=== PATIENT | female | born 1945 | race Caucasian/White ===

== ENCOUNTER 2020-06-09 12:34 | Outpatient (REF) | payer MEDICARE, MEDICAID, SELFPAY | END 2020-06-09 12:35 | disposition home or self-care (01) | LOC: HO.LAB 12:34 | PROVIDERS: Visit Provider Internal Medicine | DX: Z20.828 Contact with and (suspected) exposure to other viral communicable diseases (principal) | CPT/HCPCS: C9803; U0003 ==

== ENCOUNTER 2021-07-01 08:22 | Outpatient (REF) | payer MEDICARE, MEDICAID, SELFPAY ==
[2021-07-01 09:36] LABS: Binax Internal Control QC Valid; Binax Now Covid-19 Ag Negative (Negative)
== END 2021-07-01 08:23 | disposition home or self-care (01) ==
LOC: HO.LAB 08:22
PROVIDERS: Visit Provider Internal Medicine
DX: Z20.822 Contact with and (suspected) exposure to COVID-19 (principal)
CPT/HCPCS: C9803

== ENCOUNTER 2023-10-27 15:48 | Emergency (ER) | payer MEDICARE, MEDICAID, SELFPAY ==
--- NOTE | ~2023-10-27 | XR_ITS ---
EXAMINATION: XR CHEST CLINICAL INFORMATION: Reason for Exam dyspnea COMPARISON: CT chest 04/13/2021 TECHNIQUE: 2 views of the chest FINDINGS: Lines and tubes: None. New small left pleural effusion and streaky left basilar opacities which may reflect atelectasis. No pneumothorax. Cardiomediastinal silhouette appears slightly rotated to the left, similar to prior which may be positional secondary to scoliotic curvature. Dextroconvex curvature of the cervicothoracic spine. XR/XR chest 2V IMPRESSION: 1. New small left pleural effusion and streaky left basilar opacities which may reflect atelectasis. 2. Cardiomediastinal silhouette appears slightly rotated to the left, similar to prior which may be positional secondary to scoliotic curvature.
--- NOTE | ~2023-10-27 | CT_ITS ---
EXAMINATION: CT HEAD WITHOUT CONTRAST CLINICAL INFORMATION: Fall. Bruising over forehead COMPARISON: CT head February 04, 2020 TECHNIQUE: Contiguous axial imaging was performed from the skull base to vertex without intravenous administration of contrast. Coronal and sagittal reformatted images are performed at the CT scanner. [This CT examination was performed using dose optimization techniques as appropriate, variously including the following: *Automated exposure control *Adjustment of mA and/or kV according to patient size (this includes techniques or standardized protocols for targeted exams where dose is matched to indication/reason for exam; i.e. extremities or head) *Use of iterative reconstruction technique] DLP: 535 mGy-cm. FINDINGS: There is no evidence of acute intracranial hemorrhage or territorial infarction. No abnormal mass-effect or midline shift is seen. Grant to white matter differentiation is well preserved. No extra-axial fluid collections are identified. There is generalized global volume loss. There is moderate prominence of the ventricles and the sulci . There is moderate hypodensity of the periventricular white matter due to chronic small vessel ischemic disease. There are vascular calcifications of the internal carotid arteries bilaterally. There is no osseous abnormality. The mastoid air cells and visualized portions of the paranasal sinuses are well-aerated. CT/CT head/brain wo IV con IMPRESSION: No acute intracranial pathology.
--- NOTE | 2023-10-27 15:52 | ED_ITS ---
HPI - General Adult General Chief complaint: General Medical Stated complaint: Fluid in lungs as per primary Time Seen by Provider: 10/27/23 19:20 History of Present Illness HPI narrative: 78 years old with history of cerebral palsy, presents to the emergency room sent by her PCP after an abnormal chest x-ray. Patient fell last weekend, unclear on what date, but more than 7 days ago according to SOCIAL SCIENCE TEACHER did not seek medical advice at the time, today the SOCIAL SCIENCE TEACHER brought the patient to the PCP for evaluation since she has been complaining of chest pain. On x-ray it was seen that patient has a small pleural effusion and therefore was sent to the emergency room for evaluation. At the time of assessment patient reports no symptoms, no respiratory distress, no chest pain, no headache does notice that she has at bruise approximately 3 cm in diameter of the level of the left forehead. Denies abdominal pain nausea or vomiting This the event more than a week ago. Related Data Allergies Allergy/AdvReac Type Severity Reaction Status Date / Time No Known Allergies Allergy Verified 10/27/23 15:56 Review of Systems 2 Review of Systems: Yes all other systems are reviewed and are negative [facility] Social History Social History Advance Directives: No Advance Directives Information Provided: No Do you have a plan to hurt others: No Plan Physical Exam ED Vital Signs: Vital Signs - 24 hr 10/27/23 15:54 Temperature 98.9 F Pulse Rate 87 Respiratory Rate 20 Blood Pressure 151/85 H Pulse Oximetry 95 Oxygen Delivery Method Room Air BMI result Body Mass Index 19.0 General: Alert, Not in Distress Skin: No rash, warm. 3 cm bruise of L forehad, no laceration HEENT: Atraumatic, No Exudate or Pharyngeal Erythema Resp: Normal Breath sounds bilaterally Cardio: Regular rate and Rhythm, Normal S1, S2 Chest wall: no tenderness on palpation, no bruising ABD: Abd soft, non tender, no guarding or rebound. Normal Bowel sounds. : No cva tenderness Neuro: Alert, oriented x4, PERRL Strenght 5/5 on all extremities Sensation is preserved in both lower and upper extremities Index to nose: normal Cranial Nerves II-XII grossly intact No dysarthria, or aphasia No neglet. Visual matthews are normal bilaterally Psych: Cooperative, NO SI Course Course Course Narrative: This is a rapid medical exam performed by C. [place], COVERING MACHINE OPERATOR: Additional HPI, ROS, PE not included below will be deferred to primary provider. Patient is a 78-year-old female presenting to the ED with complaint of left sided rib pain and dyspnea. PCP ordered outpatient x-rays, SOCIAL SCIENCE TEACHER received call today and was told to bring patient to the ED for fluid in her lungs. Patient denies fevers. O2 94% on room air in triage, no increased work of breathing. Plan: CXR as prior unavailable, labs Reevaluation(s) Reevaluation #1: I personally reviewed the patient head CT that showed no intracranial bleed. Patient did well on ambulatory trial. We will provider her with spirometry. Pending formal CT report. Time: 20:08 Medical Decision Making Medical Decision Making [facility] Narrative: 78 years old presenting to the emergency room after a mechanical fall that occurred more than 7 days ago. X-ray that was done Monday showed left side small pleural effusion and some attack disease likely secondary from trauma patient however does not have any respiratory symptoms at this time, she has not febrile and does not appear to be dyspneic or tachypneic. In consideration of the fact that the patient injury occurred more than a week ago at this time I do not think patient requires hospitalization if she is able to maintain SpO2 above 92 during amb[address] trial. Plan CT head physical exam Ambulatory trial Incentive spirometer+ Admission/Observation Consideration of admission/observation: Escalation of care including admission/observation considered Lab Data [facility] Lab Attestation statement: I reviewed the patient's lab results. Hemoglobin 12.7 which makes me think patient does not have an acute blood loss. 10/27/23 16:09 10/27/23 16:09 Labs: Lab Results 10/27/23 Range/Units 16:09 WBC 7.4 (4.8-10.8) X10*3/uL RBC 4.23 (4.20-5.50) X10*6/uL Hgb 12.7 (12.0-16.0) g/dl Hct 38.5 (37.0-47.0) % MCV 91.0 (80.0-98.0) fL MCH 30.0 (27.0-33.0) pg MCHC 33.0 (31.0-35.0) g/dl RDW 13.8 (11.0-16.0) % Plt Count 211 (160-400) X10*3/uL MPV 10.0 (9.4-12.3) fL Immature Gran % (Auto) 0.5 H (0.0-0.4) % Neut % (Auto) 73.6 H (45-73) % Lymph % (Auto) 14.9 L (20-40) % Chambers % (Auto) 7.6 (2-11) % Eos % (Auto) 2.9 (0-4) % Baso % (Auto) 0.5 (0-2) % Lymph # (Auto) 1.1 L (1.2-4.9) X10*3/uL Chambers # (Auto) 0.6 (0.1-1.2) X10*3/uL Eos # (Auto) 0.2 (0.0-0.4) X10*3/uL Baso # (Auto) 0.0 (0.0-0.2) X10*3/uL Abs Immat Gran (auto) 0.04 H (0.00-0.03) X10*3/uL Absolute Neuts (auto) 5.4 (2.0-8.3) x10*3/uL Absolute Nucleated RBC 0.000 (0.0-0.012) X10*3/uL Nucleated RBC % (auto) 0.0 (0.0-0.2) /100WBC PT 11.8 (11.1-13.3) SEC INR 1.0 (0.9-1.1) Sodium 141 (135-145) mmol/L Potassium 4.3 (3.3-5.1) mmol/L Chloride 107 (96-108) mmol/L Carbon Dioxide 24 (22-29) mmol/L Anion Gap 14 (12-20) BUN 16 (9-16) mg/dL Creatinine 0.82 (0.5-1.4) mg/dL Estim Creat Clear Calc 39.4 Estimated GFR > 60 Random Glucose 109 (60-115) mg/dL Calcium 9.7 (8.4-10.2) mg/dL Total Bilirubin 0.8 (0.0-1.0) mg/dL AST 19 (5-31) U/L ALT 9 (0-31) U/L Alkaline Phosphatase 83 (39-117) U/L B-Natriuretic Peptide 63 (<100) pg/mL Total Protein 7.1 (6.5-8.0) g/dL Albumin 3.9 (3.5-5.0) g/dL Influenza Type A (PCR) NEGATIVE (Negative) Influenza Type B (PCR) NEGATIVE (Negative) RSV RNA Qual (PCR) NEGATIVE (Negative) SARS-CoV-2 RNA (RT-PCR) NEGATIVE (Negative) Independent Interpretation I performed an independent interpretation of an: EKG (I personally reviewed patient's EKG that shows normal sinus rhythm.), Plain X-Ray (I personally reviewed patient's chest x-ray shows a small side left-sided pleural effusion) and CT Scan (I personally reviewed and interpreted the patient CT head that shows no intracranial bleed.) Radiology Impression Discussion of test interpretation with radiology: I have reviewed the radiologist's reading. Discharge Plan Discharge Clinical Impression: Pleural effusion, Fall Patient Disposition: Home, Self-Care Instructions: How to Use an Incentive Spirometer (ED) Additional Instructions: Return to the emergency room if you experience chest pain, shortness of breath, chills fever or cough. For pain at home you can use Tylenol 1000 mg every 8 hours. Follow-up with your primary care physician within the next 3-5 days. Print Language: Barbadian
[2023-10-27 15:54] VITALS: BP 151/85; PULSE 87; RESP 20; TEMP 37.2; O2SAT 95; BMI 19.0
--- NOTE | 2023-10-27 15:57 | ECG_ITS ---
Test Reason : dyspnea Blood Pressure : / mmHG Vent. Rate : 080 BPM Atrial Rate : 080 BPM P-R Int : 140 ms QRS Dur : 084 ms QT Int : 342 ms P-R-T Axes : 055 006 035 degrees QTc Int : 394 ms Normal sinus rhythm Anterior infarct , age undetermined Abnormal ECG No previous ECGs available Referred By: Liliana Atkinson Electronically Signed By:Rodrigo Smith
[2023-10-27 16:19] LABS: MANUAL DIFF FLAG NO
[2023-10-27 16:22] LABS: Basophils Percent Auto 0.5 % (0-2); Eosinophils Absolute Auto 0.2 X10*3/uL (0.0-0.4); Eosinophils Percent Auto 2.9 % (0-4); Hematocrit 38.5 % (37.0-47.0); Hemoglobin 12.7 g/dl (12.0-16.0); Imm Gran Abs Auto 0.04 X10*3/uL (0.00-0.03); Imm Gran Pct Auto 0.5 % (0.0-0.4); Lymphocytes Absolute Auto 1.1 X10*3/uL (1.2-4.9); Lymphocytes Percent Auto 14.9 % (20-40); Monocytes Absolute Auto 0.6 X10*3/uL (0.1-1.2); Monocytes Percent Auto 7.6 % (2-11); Neutrophils Absolute Auto 5.4 x10*3/uL (2.0-8.3); Neutrophils Percent Auto 73.6 % (45-73); Platelet Count 211 X10*3/uL (160-400); Red Blood Count 4.23 X10*6/uL (4.20-5.50); Red Cell Distribution Width 13.8 % (11.0-16.0); White Blood Count 7.4 X10*3/uL (4.8-10.8)
[2023-10-27 16:27] LABS: Prothrombin Time 11.8 SEC (11.1-13.3)
[2023-10-27 16:34] LABS: Alanine Aminotransferase 9 U/L (0-31); Albumin Level 3.9 g/dL (3.5-5.0); Alkaline Phosphatase 83 U/L (39-117); Anion Gap 14 (12-20); Aspartate Amino Transferase 19 U/L (5-31); Bilirubin Total 0.8 mg/dL (0.0-1.0); Blood Urea Nitrogen 16 mg/dL (9-16); Calcium 9.7 mg/dL (8.4-10.2); Carbon Dioxide 24 mmol/L (22-29); Chloride 107 mmol/L (96-108); Creatinine Clr Calc Pharmacy 39.4; Estimated Glomerular Filt Rate > 60; Glucose Random 109 mg/dL (60-115); Potassium 4.3 mmol/L (3.3-5.1); Sodium 141 mmol/L (135-145); Total Protein 7.1 g/dL (6.5-8.0)
[2023-10-27 16:40] LABS: B Type Natriuretic Peptide 63 pg/mL (<100)
[2023-10-27 17:07] LABS: Influenza A PCR NEGATIVE (Negative); Influenza B PCR NEGATIVE (Negative); Resp Syncy Virus RNA Qual PCR NEGATIVE (Negative); SARS COV2 PCR INHOUSE NEGATIVE (Negative)
--- NOTE | 2023-10-27 20:10 | MHC.EDTECH ---
PATIENT WAS AMBULATED.PATIENT WAS ABLE TO AMBULATE WITH WALKER WITH NO ASSIST.PATIENTS 02 PRIOR TO AMBULATION TRIAL WAS 95 ,PULSE RATE WAS 88 AND RESPIRATIONS WERE 18.DURING AMBULATION O2 WAS 94 ,PULSE RATE WAS 102 AND RESPIRATIONS WERE 18.
[2023-10-27 21:11] VITALS: BP 135/63; PULSE 73; RESP 16; TEMP 36.6; O2SAT 95
== END 2023-10-27 21:12 | disposition home or self-care (01) ==
PROVIDERS: Registered Nurse Emergency; Emergency Provider Student in an Organized Health Care Education/Training Program; PCP Internal Medicine
DX: J90 Pleural effusion, not elsewhere classified (principal); R06.02 Shortness of breath; R07.89 Other chest pain; R51.9 Headache, unspecified; Z03.818 Encounter for observation for suspected exposure to other biological agents ruled out; Z79.899 Other long term (current) drug therapy
CPT/HCPCS: 0241U; 36415; 70450; 71046; 80053; 83880; 85025; 85610; 93005; 99283; 99284

== ENCOUNTER → 2023-10-27 15:57 | Outpatient (BNV) | payer MEDICARE, MEDICAID, SELFPAY | PROVIDERS: Emergency Provider Student in an Organized Health Care Education/Training Program; PCP Internal Medicine; Visit Provider Internal Medicine Cardiovascular Disease | DX: R06.09 Other forms of dyspnea (principal) | CPT/HCPCS: 93010 ==